=== PATIENT | male | born 1970 | race Caucasian/White ===

== ENCOUNTER 2020-11-26 09:31 | Outpatient (CLI) | payer BC, SELFPAY ==
--- NOTE | ~2020-11-26 | US_ITS ---
EXAMINATION: US soft tissue abdomen DATE: 11/26/2020 10:10 INDICATION: Intra-abdominal and pelvic swelling, mass or lump. TECHNIQUE: Multiple grayscale and Doppler ultrasound images of the abdominal right lower quadrant reg ion of concern were obtained both supine as well as while standing with Valsalva. COMPARISON: None FINDINGS: There is a small amount of gas within the small peristalsing loops of bowel in the region of concern. Normal appearance to the subcutaneous fat and musculature of the anterior abdominal wall. No evident ventral hernia. No abnormal masses or fluid collections identified. IMPRESSION: 1. No ventral hernia or other abnormal masses or fluid collections identified at the right lower quad rant region of concern. Reviewed, dictated and finalized at location B. EE GROWER IMPRESSION: 1. No ventral hernia or other abnormal masses or fluid collections identified a t the right lower quadrant region of concern.
== END 2020-11-26 09:32 | disposition home or self-care (01) ==
PROVIDERS: PCP Physician Assistant; Visit Provider Physician Assistant
DX: R19.00 Intra-abdominal and pelvic swelling, mass and lump, unspecified site (principal)
CPT/HCPCS: 76705

== ENCOUNTER → 2021-02-05 00:59 | Outpatient (CLI) | payer BC, SELFPAY ==
[2021-02-05 19:49] LABS: SARS-CoV-2 RNA PCR Negative
== END ==
PROVIDERS: PCP Physician Assistant; Visit Provider Internal Medicine Gastroenterology
DX: Z01.812 Encounter for preprocedural laboratory examination (principal); Z20.822 Contact with and (suspected) exposure to COVID-19
CPT/HCPCS: C9803; U0003; U0005

== ENCOUNTER 2021-02-08 01:22 | Day surgery (SDC) | payer BC, SELFPAY ==
[2021-02-02 09:16] VITALS: BMI 43.2
[2021-02-08 10:34] VITALS: BP 147/76; PULSE 70; RESP 18; TEMP 36.9; O2SAT 99
[2021-02-08] MEDS: LACTATED RINGERS 1,000 ML 150 ML IV CONT (10:48)
--- NOTE | 2021-02-08 10:59 | WPDANESEPPF ---
Anes - Initial Pre Proc Eval Procedure: Operation Date: 02/08/21 11:30 Proposed Procedures p Colonoscopy - Bladimir Soliz MD Date/Time: 02/08/21 10:59 Surgeon: Bladimir Soliz MD Pre Op Diagnosis: blood in stool, rectal bleed Patient Data Age: 50 Gender: M Height: 5 ft 8 in Weight: 129 kg Last Vital Signs Temp 98.4 F 02/08/21 10:34 Pulse 70 02/08/21 10:34 Resp 18 02/08/21 10:34 BP 147/76 H 02/08/21 10:34 Pulse Ox 99 02/08/21 10:34 Allergies Allergy/AdvReac Type Severity Reaction Status Date / Time No Known Allergies Allergy Verified 02/08/21 10:33 Home Medications Medication Instructions Recorded Confirmed Type cholecalciferol (vitamin D3) 250 250 mcg PO DAILY 11/20/20 02/02/21 History mcg (10,000 unit) capsule fexofenadine 180 mg tablet 180 mg PO DAILY 11/20/20 02/02/21 History multivit,calc,mins-folic 240 1 tablet PO DAILY 11/20/20 02/02/21 History mcg-vit K1 30 mcg-lycopene 300 mcg tablet naproxen 500 mg tablet 500 mg PO DAILY tablet 01/28/21 02/02/21 History Patient hx anesthesia problems: none Family hx anesthesia problems: none PMFSH Past Medical History Medical History Bleeding Carpal tunnel syndrome History of pneumonia SOB (shortness of breath) Surgical History Surgical History H/O knee surgery Family History Family History Mother Diabetes mellitus Social History Social History Smoking packs per day: 2 Smoking cigarettes per day: 40.0 Years smoked: 30 Smoking pack-years: 60.00 Smoking status: Former smoker Tobacco type: cigarettes Alcohol intake: current Drinks per week: 2 Substance use: never Substance use type: does not use Living arrangements: with family Spiritual care concerns: No Anes - Eval Final PreProcedure Day of Procedure 02/08/21 10:59 Patient weight: morbidly obese Heart: regular rate and rhythm Lungs: clear to auscultation Airway: Mallampati scale class III Neurological: alert and oriented Last oral intake: >/= 8 hours ASA classification: III Emergent: no Anesthetic plan: proceed Anesthesia type and monitoring: general GIVS and standard monitoring Informed Consent: The patient's anesthetic plan and its attendant risks and benefits were discussed with the patient/family/POA. Questions were solicited and answers provided to the satisfaction of the patient/family/POA.
--- NOTE | 2021-02-08 11:03 | PM.HPGS ---
History of Present Illness History of Present Illness Consent: Risks, benefits, and alternatives have been discussed and questions answered. Patient agrees to proceed with procedure. Chief complaint: blood in stool, rectal bleed Narrative: Isael Devine is a 50 year old male referred for evaluation of rectal bleeding Review of Systems Review of Systems: All systems reviewed & are unremarkable except as noted in HPI and below PMFSH Past Medical History Medical History Bleeding Carpal tunnel syndrome History of pneumonia SOB (shortness of breath) Surgical History Surgical History H/O knee surgery Family History Family History Mother Diabetes mellitus Social History Social History Smoking packs per day: 2 Smoking cigarettes per day: 40.0 Years smoked: 30 Smoking pack-years: 60.00 Smoking status: Former smoker Tobacco type: cigarettes Alcohol intake: current Drinks per week: 2 Substance use: never Substance use type: does not use Living arrangements: with family Spiritual care concerns: No Meds Home Medications and Allergies Home Medications Medication Instructions Recorded Confirmed Type cholecalciferol (vitamin D3) 250 250 mcg PO DAILY 11/20/20 02/02/21 History mcg (10,000 unit) capsule fexofenadine 180 mg tablet 180 mg PO DAILY 11/20/20 02/02/21 History multivit,calc,mins-folic 240 1 tablet PO DAILY 11/20/20 02/02/21 History mcg-vit K1 30 mcg-lycopene 300 mcg tablet naproxen 500 mg tablet 500 mg PO DAILY tablet 01/28/21 02/02/21 History Allergies Allergy/AdvReac Type Severity Reaction Status Date / Time No Known Allergies Allergy Verified 02/08/21 10:33 Vital Signs Vital Signs - 24 hr 02/08/21 10:34 Temperature 36.9 C Pulse Rate 70 Respiratory Rate 18 Blood Pressure 147/76 H Pulse Oximetry 99 Exam Const: General: alert Orientation/consciousness: patient oriented x3 Resp: Auscultation: clear to auscultation bilaterally Cardio: Rhythm: regular rhythm GI: GI Palp: Yes Soft to palpation and No Tenderness to palpation present (GI) Neuro: General: patient oriented x3 Assessment and Plan Assessment and plan (1) Blood in stool: Code(s): K92.1 - Melena Status: Acute Assessment and Plan: Colonoscopy with possible biopsy or polypectomy or cautery or injection of substances.
[2021-02-08 11:54] VITALS: BP 111/72; PULSE 79; RESP 20; O2SAT 96
[2021-02-08 12:04] VITALS: BP 121/71; PULSE 77; RESP 12; O2SAT 96
[2021-02-08 12:14] VITALS: BP 130/78; PULSE 72; RESP 22; O2SAT 97
== END 2021-02-08 12:20 | disposition home or self-care (01) ==
PROVIDERS: PCP Physician Assistant; Visit Provider Internal Medicine Gastroenterology
PROC: 0DJD8ZZ Inspection of Lower Intestinal Tract, Via Natural or Artificial Opening Endoscopic (ICD-10-PCS; CPT 45378; principal; 2021-02-08 11:30)
DX: K92.1 Melena (principal); K64.8 Other hemorrhoids; G56.00 Carpal tunnel syndrome, unspecified upper limb; Z87.891 Personal history of nicotine dependence; E66.01 Morbid (severe) obesity due to excess calories; Z68.41 Body mass index [BMI] 40.0-44.9, adult
CPT/HCPCS: 45378; J2704; J7120

== ENCOUNTER → 2021-08-24 01:51 | Outpatient (CLI) | payer BC, SELFPAY ==
[2021-08-24 18:23] LABS: SARS-CoV-2 RNA PCR Negative
== END ==
PROVIDERS: PCP Internal Medicine; Visit Provider Physician Assistant
DX: R68.89 Other general symptoms and signs (principal); Z20.822 Contact with and (suspected) exposure to COVID-19
CPT/HCPCS: C9803; U0003; U0005

== ENCOUNTER → 2021-11-10 11:51 | Outpatient (CLI) | payer BC, SELFPAY ==
--- NOTE | ~2021-11-10 | XR_ITS ---
EXAMINATION: XR chest 2V EXAM DATE: 11/10/2021 12:04 INDICATION: R05.9 - Cough, unspecified . TECHNIQUE: Frontal and lateral projections of the chest obtained and reviewed. Comparison is made to prior examination from 04/15/2013. FINDINGS: The lungs are clear. There are no pleural effusions. The cardiomediastinal silhouette is within normal limits. There is no pneumothorax suspected. The bones and soft tissues are unremarkab le. IMPRESSION: No acute cardiopulmonary findings. Reviewed, dictated and finalized at location A. U[employer] T[employer]OR
== END ==
PROVIDERS: Visit Provider Physician Assistant
DX: R05.9 Cough, unspecified (principal)
CPT/HCPCS: 71046

== ENCOUNTER 2022-06-16 11:27 | Emergency (ER) | payer BC, SELFPAY ==
[2022-06-16 11:35] VITALS: BP 137/87; PULSE 68; RESP 18; TEMP 36.3; O2SAT 99
--- NOTE | 2022-06-16 11:35 | ED.SKABFB ---
HPI - Skin/Abscess/Foreign Bdy General Chief complaint: Skin/Abscess/Foreign Body Stated complaint: Insect Bite Rt Lower Leg Time Seen by Provider: 06/16/22 11:35 Source: patient, RN notes reviewed and old records reviewed Mode of arrival: ambulatory Limitations: no limitations History of Present Illness HPI narrative: 51-year-old male presents to the [facility] with complaints of a rash to the medial aspect right mid calf for 2-1/2 weeks. Tried calling his primary care provider was told to use his triamcinolone. Symptoms or not improving. Very itchy. complaint: rash Related Data Home Medications Medication Instructions Recorded Confirmed meloxicam 15 mg tablet 15 mg PO DAILY 06/16/22 06/16/22 Allergies Allergy/AdvReac Type Severity Reaction Status Date / Time No Known Allergies Allergy Verified 06/16/22 11:28 Review of Systems Review of Systems: All systems reviewed & are unremarkable except as noted in HPI and below Constitutional: Constitutional: Reports no additional constitutional complaints, Denies chills and Denies fever(s) Eyes: Eyes: Reports no additional eye complaints ENT: Reports system reviewed and no additional complaints, except as documented Cardiovascular: Cardiovascular: Reports no additional cardiovascular complaints Respiratory: Respiratory: Reports no additional respiratory complaints Gastrointestinal: Gastrointestinal: Reports no additional gastrointestinal complaints Musculoskeletal: Musculoskeletal: Reports no additional musculoskeletal complaints Integumentary/Breasts: Skin/Breast: Reports as per HPI and Reports rash (right mid medial lower leg) Neurologic: Reports system reviewed and no additional complaints, except as documented Psychiatric: Psychiatric: Reports no additional psychiatric complaints Allergic/Immunologic: Allergic/Immunologic: Reports no additional allergic/immunologic complaints [facility] Past Medical History Medical History Bleeding Carpal tunnel syndrome History of pneumonia SOB (shortness of breath) Surgical History Surgical History H/O knee surgery Family History Family History Mother Diabetes mellitus Social History Social History Smoking packs per day: 2 Smoking cigarettes per day: 40.0 Years smoked: 30 Smoking pack-years: 60.00 Smoking status: Former smoker Tobacco type: cigarettes Alcohol intake: current Drinks per week: 2 Substance use: never Substance use type: does not use Spiritual care concerns: No Comments At the time of my signature, I reviewed and agree with the nursing past medical, surgical, social, and family history. There is no relevant family history pertinent to the patient complaint. Exam Const: General: healthy appearing, no acute distress and alert Nutritional Appearance: well nourished and obese Orientation/consciousness: patient oriented x3 Limitations: no limitations HENMT: Head: normal to inspection Ears: external ears normal Eyes: General: appearance normal, both eyes and all related structures Pupils: Equal, round and reactive pupils present Neck: Neck: normal visual inspection, no lymphadenopathy and no meningeal signs Chest: Chest palpation & inspection: normal inspection of the chest Resp: Effort & Inspection: normal respiratory effort and no use of accessory muscles Auscultation: clear to auscultation bilaterally, no crackles, no rales, no rhonchi and no wheezes Cardio: Rate: regular rate Rhythm: regular rhythm GI: GI Palp: Yes Soft to palpation and No Tenderness to palpation present (GI) Back/Spine/Pelvis: Cervical Spine: normal cervical lordosis Thoracic/Lumbar Spine: thoracic and lumbar spine normal to inspection Skin: General skin exam: normal colo
== END 2022-06-16 11:58 | disposition home or self-care (01) ==
PROVIDERS: Emergency Provider Nurse Practitioner; PCP Internal Medicine
DX: R21 Rash and other nonspecific skin eruption (principal); Z87.891 Personal history of nicotine dependence
CPT/HCPCS: 99213; G0463

== ENCOUNTER 2022-08-20 13:43 | Emergency (ER) | payer BC, SELFPAY ==
--- NOTE | ~2022-08-20 | XR_ITS ---
EXAMINATION: XR chest 2V DATE: 08/20/2022 14:38 INDICATION: Smoker presenting with cough TECHNIQUE: PA and lateral views of the chest were obtained. COMPARISON: Chest radiograph dated 11/10/2021 FINDINGS: Unchanged mild lingular linear discoid atelectasis/scarring at the anterolateral left lower lung zone . Lungs remain otherwise clear with no other airspace opacities, pulmonary edema, pleural effusion or pneumothorax. The cardiomediastinal silhouette is normal. Small bone island at the right humeral hea d. IMPRESSION: 1. Unchanged mild lingular discoid atelectasis/scarring. No acute cardiopulmonary disease. Reviewed, dictated and finalized at location A. IMPRESSION: 1. Unchanged mild lingular discoid atelectasis/scarring. No acute cardiopulmona ry disease.
[2022-08-20 14:03] VITALS: BP 149/86; PULSE 92; RESP 20; TEMP 36.3; O2SAT 99
--- NOTE | 2022-08-20 15:02 | ED.GENADULT ---
HPI - General Adult General Chief complaint: Upper Respiratory Infection Stated complaint: runny nose,cough,ears tingling History of Present Illness HPI narrative: patient is a 52-year-old male who presents to the [facility] via POV for evaluation of a cough that has been present for approximately 4 days. Additionally, he reports roof of mouth swelling, headache, sinus congestion, and fatigue. Mucinex D, Walphed, and at home neb tx provide some relief. Nothing worsens symptoms. He is an every day tobacco smoker. Hx of chronic bronchitits and pneumonia that goes bad fast. DENIES A HISTORY OF HYPERTENSION AND DIABETES MELLITUS Related Data Home Medications Medication Instructions Recorded Confirmed clotrimazole-betamethasone 1 2 applic topical BID 08/20/22 08/20/22 %-0.05 % topical cream Allergies Allergy/AdvReac Type Severity Reaction Status Date / Time No Known Allergies Allergy Verified 08/20/22 14:15 Review of Systems Review of Systems: Pertinent negatives: fever, sweats, chills, change in appetite, fatigue, skin color changes, nasal congestion, dizziness, lymphadenopathy, ear pain/drainage, chest pain, heart murmurs, heart palpitations, shortness of breath, wheezing, cyanosis, hemoptysis, hoarseness, orthopnea, pleuritic pain, nausea, vomiting, diarrhea, and myalgias. [facility] Past Medical History Medical History Bleeding Carpal tunnel syndrome History of pneumonia SOB (shortness of breath) Surgical History Surgical History H/O knee surgery Family History Family History Mother Diabetes mellitus Social History Social History Smoking packs per day: 2 Smoking cigarettes per day: 40.0 Years smoked: 30 Smoking pack-years: 60.00 Smoking status: Former smoker Tobacco type: cigarettes Alcohol intake: current Drinks per week: 2 Substance use: never Substance use type: does not use Spiritual care concerns: No Comments I have reviewed and agree with the patient's past medical, surgical, social, and family hx as documented by the RN. There is no relevant family history pertinent to the presenting complaint. Exam Narrative: GENERAL: Well-appearing, well-nourished, and in no acute distress. HEAD: Normocephalic, atraumatic. No sinus tenderness or facial swelling appreciated. EYES: PERRLA and EOMI. No evidence of erythema, swelling, or drainage. ENT: Bilateral external ears and ear canals normal. Bilateral TMs are normal.No TM perforation. Nares clear, no rhinorrhea or epistaxis. Bilateral turbinates without erythema/ swelling. Mucous membranes moist and pink. Uvula is midline without erythema and swelling. No evidence of petechial rash, cobblestoning, lesions, ulcers, erythema, swelling, exudates, peritonsillar abscess, tenting, or drooling. Breath odor and voice normal. NECK: Supple. No Lymphadenopathy or nuchal rigidity appreciated. CHEST: Bilateral lung plaza are clear to auscultation. No respiratory distress. MODERATE WET COUGH APPRECIATED ON EXAMINATION. HEART: Regular rate and rhythm. No murmur, gallop, or rub heard. EXTREMITIES: Normal range of motion. No edema. SKIN: Warm, dry, no rash. NEURO: No focal deficits. Alert and oriented x3. Course Course Emergency Course: THE PATIENT/GUARDIAN DISPLAYS ADEQUATE DECISION MAKING CAPABILITY AND DESPITE A DETAILED DISCUSSION OF ALTERNATIVES, BENEFITS, RISKS, AND CONSEQUENCES REFUSES ALL LAB TESTING. Level of Care: Express Care Visit Vital Signs Vital signs: Vital Signs Temperature 97.3 F L 08/20/22 14:03 Pulse Rate 92 08/20/22 14:03 Respiratory Rate 20 08/20/22 14:03 Blood Pressure 149/86 H 08/20/22 14:03 Pulse Oximetry 99 08/20/22 14:03 Oxygen Delivery Sari
== END 2022-08-20 15:50 | disposition home or self-care (01) ==
PROVIDERS: Emergency Provider Nurse Practitioner Family; PCP Internal Medicine
DX: R05.9 Cough, unspecified (principal); Z20.822 Contact with and (suspected) exposure to COVID-19; Z87.891 Personal history of nicotine dependence
CPT/HCPCS: 71046; 87426; 87804; 99213; C9803; G0463

== ENCOUNTER 2022-12-20 10:37 | Outpatient (CLI) | payer BC, SELFPAY ==
--- NOTE | ~2022-12-20 | XR_ITS ---
Clinical Indication: Cough PA and lateral views of the chest: Comparison: 08/20/2022 Findings: The lungs are clear, without evidence of focal consolidation or pleural effusion. Cardiome diastinal silhouette is within normal limits. Bones and soft tissues are unremarkable. Impression: Normal chest. Reviewed, dictated and finalized at location . CE NURSE Impression: Normal chest.
== END 2022-12-20 10:38 | disposition home or self-care (01) ==
PROVIDERS: PCP Physician Assistant; Visit Provider Physician Assistant
DX: R05.9 Cough, unspecified (principal)
CPT/HCPCS: 71046

== ENCOUNTER 2023-01-31 10:41 | Outpatient (CLI) | payer BC, SELFPAY ==
[2023-01-31 11:45] LABS: SARS-CoV-2 RNA PCR Negative
== END 2023-01-31 10:42 | disposition home or self-care (01) ==
PROVIDERS: PCP Physician Assistant; Visit Provider Physician Assistant
DX: R68.89 Other general symptoms and signs (principal); Z20.822 Contact with and (suspected) exposure to COVID-19
CPT/HCPCS: U0003; U0005

== ENCOUNTER 2025-01-15 11:47 | Outpatient (CLI) | payer BC, SELFPAY ==
--- NOTE | ~2025-01-15 | CT_ITS ---
CT sinus wo con Ordering provider: Drake Beavers APRN History: . J32.9 - Chronic sinusitis, unspecified . Comparison: None. Technique: Thin slice Scans CT of the paranasal sinuses was performed with coronal and sagittal refor matted images. No IV contrast. . Automated exposure control and iterative reconstruction technique w ere employed. The dose-length product was 266.74 mGy-cm. Findings: NASAL SEPTUM: Mild left nasal septal deviation. OSTEOMEATAL UNITS: The left is patent the right is obliterated. NASAL TURBINATES AND NASOPHARYNX: Normal. PARANASAL SINUSES: Right maxillary sinus disease with thickened wall of the sinus suggestive of chron ic sinusitis. Right ethmoid sinus disease. VISUALIZED MASTOIDS: Normal as visualized. BONES: Normal. SUPERFICIAL SOFT TISSUES/VISUALIZED BRAIN PARENCHYMA: Normal. IMPRESSION: Right maxillary and ethmoid sinus disease. Left nasal septal deviation. Reviewed, dictated and finalized at location A.
== END 2025-01-15 11:48 | disposition home or self-care (01) ==
LOC: MICIMG 11:48
PROVIDERS: PCP Nurse Practitioner; Visit Provider Nurse Practitioner
DX: J32.0 Chronic maxillary sinusitis (principal); J32.2 Chronic ethmoidal sinusitis; J34.2 Deviated nasal septum
CPT/HCPCS: 70486

== ENCOUNTER 2025-04-24 07:50 | Outpatient (CLI) | payer BC, SELFPAY ==
--- NOTE | 2025-04-24 07:57 | ECG_ITS ---
Test Date: 2025-04-24 08:18:05 Measurements Intervals [place] Rate: 71 P: 69 LA: 140 QRS: 57 QRSD: 113 T: 52 QT: 379 QTc: 412 Interpretive Statements SINUS RHYTHM INTRAVENTRICULAR CONDUCTION DELAY DELAYED PRECORDIAL R/S TRANSITION BASELINE ARTIFACT- I, III, AVR, AVL, AVF, V3-V4 BORDERLINE ECG No previous ECG available for comparison Electronically Signed On 04-24-2025 08:29:17 CDT by Jose Vergara D.O.
== END 2025-04-24 07:51 | disposition home or self-care (01) ==
LOC: ANHSURGERY 07:53
PROVIDERS: PCP Nurse Practitioner; Visit Provider Otolaryngology Otolaryngology/Facial Plastic Surgery
DX: E78.5 Hyperlipidemia, unspecified (principal); F17.210 Nicotine dependence, cigarettes, uncomplicated; Z01.818 Encounter for other preprocedural examination
CPT/HCPCS: 93005

== ENCOUNTER 2025-04-25 00:09 | Day surgery (SDC) | payer BC, SELFPAY ==
--- NOTE | 2025-04-22 15:24 | PC.NURSE ---
Report to the Outpatient Waiting Room, entrance under the green pavilion located off [facility], at time _0600_ on date _[id number]_. Planned Procedure Time: _0730_.? Time changes happen often and if your time is changed the preop area will call you the afternoon before. - You and your visitor will be asked to self-screen and do not enter if you have any COVID symptoms. Please call surgeon if you need to reschedule. - A mask is optional within the hospital at this time. Patients may have clear liquids (water, carbonated beverages, clear teas, apple juice) until 3 hours prior to surgery with a maximum of 20 ounces. - No food from midnight until time of surgery and no smoking, or chewing tobacco (or any form of nicotine). No chewing gum, candy or mints. Take only the following medications with a SIP of water on the morning of surgery: __Albuterol and flonase if needed. Doxycycline____ DO NOT STOP ANY OF YOUR OTHER PRESCRIPTION MEDICATIONS PRIOR TO SURGERY EXCEPT THE FOLLOWING Hold all vitamins and supplements for 3 days per anesthesiologist. Medications to discontinue per physician ____Meloxicam____ Date to take last dose_Stop now.___ Please no make-up, nail ethiopian, hairspray, perfume, deodorant, or body powder the day of surgery.? No jewelry (including any body piercings) or valuables the day of surgery, leave them at home.? Please take a shower or bath the night before, or the morning of, surgery with an antibacterial soap.? Wear comfortable, loose fitting clothing.? - Jewelry must be removed prior to entering the operating room.? Rings and piercings that are not removed may be cut off. - The hospital will not accept responsibility for valuables.? - Please leave all valuables, including medications, at home the day of surgery. If you are going home after surgery, a licensed trencher driver must drive you home.? - NO public transportation without another adult if you receive anesthesia. - We recommend that an adult stay with you for 24 hours following discharge. - We also recommend that you do not drive, make important decision, drink alcoholic beverages, or take any drugs that were not prescribed by your health care provider for at least 24 hours after your discharge time. Follow any additional instructions given to you from your surgeon. Telephone instructions given to __James__and asked if any additional questions and then verbalized understanding. Patient advised to call surgeon office or pre surgery nurse liaison [phone] if any additional questions.
[2025-04-22 15:26] VITALS: BMI 35.8
--- NOTE | 2025-04-24 16:45 | P.HP_ITS ---
H&P: HPI History of Present Illness Date/Time: 04/24/25 16:45 Chief Complaint: chronic sinusitis Review of Systems Review of Systems: All systems reviewed & are unremarkable except as noted in HPI and below Constitutional: Constitutional: Reports as per HPI ENT: Reports as per HPI Respiratory: Respiratory: Reports as per HPI Gastrointestinal: Gastrointestinal: Reports as per HPI [facility] Past Medical History Medical History Bleeding SOB (shortness of breath) Carpal tunnel syndrome History of pneumonia Surgical History Surgical History H/O knee surgery Family History Family History Mother Diabetes mellitus Social History Social History Social History: Caffeine-energy drinks Smoking packs per day: 1.5 Smoking cigarettes per day: 30.0 Years smoked: 20 Smoking pack-years: 30.00 Smoking status: Current every day smoker Tobacco type: cigarettes Alcohol intake: current Drinks per week: 8 Substance use: never Substance use type: does not use Lack of Transportation: No Lack of Food: Never True Current Housing: I Have Housing Concerned About Future Housing: No Difficulty Paying Gas/Electric Bills: No Difficulty Paying for Meds: No Currently Unemployed: No Education: Bachelor's Degree Difficulty w/ Childcare or Family Care: No Living arrangements: with family Spiritual care concerns: No Meds Home Medications and Allergies Home Medications ?Medication ?Instructions ?Recorded ?Confirmed ?Type fexofenadine-pseudoephedrine ER 1 tablet PO DAILY 12/02/22 04/22/25 History 180 mg-240 mg tablet,ext.release 24 hr (Cindy-D 24 Hour) fluticasone propionate 50 2 spray intranasal DAILY #18 mL 05/15/23 04/22/25 Rx mcg/actuation nasal spray,suspension (Flonase Allergy Relief) albuterol sulfate 90 mcg/actuation 2 puff inhalation Q4-6H PRN 03/21/24 04/22/25 Rx aerosol inhaler Shortness Of Breath Or Wheezing #25.5 grams rosuvastatin 5 mg tablet 5 mg PO DAILY #90 tabs 11/11/24 04/22/25 Rx albuterol sulfate 2.5 mg/3 mL 2.5 mg (3 mL) inhalation Q4-6H PRN 12/26/24 04/22/25 Rx (0.083 %) solution for nebulization shortness of breath or wheezing #90 mL meloxicam 15 mg tablet See Rx Instructions .Route 02/07/25 04/22/25 Rx .COMPLEX #90 tabs doxycycline hyclate 100 mg capsule 100 mg PO DAILY 04/22/25 04/22/25 History Allergies Allergy/AdvReac Type Severity Reaction Status Date / Time No Known Allergies Allergy Verified 04/25/25 05:48 Exam Const: General: cooperative, healthy appearing, comfortable, no acute distress, well developed, alert, awake and Physically active Orientation/consciousness: oriented to person, oriented to place, oriented to time and patient oriented x3 HENMT: Head: normocephalic and atraumatic Ears: external ears normal and EAC's normal Face/Nose/Sinus: Normal external nose present and Normal nares present Mouth: Yes Normal oral and palatal mucosa present, Yes lip normal and Yes tongue normal Eyes: General: appearance normal, both eyes and all related structures Neck: Neck: normal visual inspection, full ROM and trachea midline Resp: Effort & Inspection: normal respiratory effort and able to speak in complete sentences Cardio: Rate: regular rate Neuro: General: oriented to person, oriented to place, oriented to time and patient oriented x3 Assessment and Plan Assessment and plan (1) Chronic right maxillary sinusitis: Code(s): J32.0 - Chronic maxillary sinusitis Status: Acute (2) Chronic seasonal allergic rhinitis: Code(s): J30.2 - Other seasonal allergic rhinitis Status: Acute (3) Chronic ethmoidal sinusitis: Code(s): J32.2 - Chronic ethmoidal sinusitis Status: Acute (4) Chronic sinusitis: Qualifiers: Sinusitis location: pansinusitis Qualified Code(s): J32.4 - Chronic pansinusitis Code(s): J32.9 - Chronic sinusitis, unspecified Status: Acute Plan 54-year-old male with deviated nasal septum hypertrophy of nasal turbinates and chronic right-sided pansinusitis left deviated nasal septum and hypertrophy of nasal turbinates with mucopurulent secretion from the right middle meatus neck as well as the posterior meatus CT sinuses: IMPRESSION: Right maxillary and ethmoid sinus disease. Left nasal septal deviation. -Risk of septoplasty procedures were discussed with the patient which include but not limited to; Bleeding, infection, septal perforation, saddle nose deformity, intranasal scarring -Risks for sinus surgery: injury to the skull base, injury to the eye, need for further surgery. Risk of recurrent disease is also discussed.
--- NOTE | 2025-04-24 16:46 | P.OP_ITS ---
Procedure Note - Detailed Date of Procedure 04/25/25 Pre-op Diagnosis chronic sinusitis, chronic johns and maxill sinus, Post-op Diagnosis Same Procedure Performed ? Endoscopic septoplasty ? Nasal endoscopy with maxillary antrostomy right. ? Nasal endoscopy with ethmoidectomy, total (anterior and posterior) right. ? Nasal endoscopy with frontal sinusotomy with balloon dilation . ? Bilateral inferior turbinate reduction (intramural (submucosal) ablation of the inferior turbinate.) Surgeon Lydia Rebolledo MD Anesthesia General Description of Procedure DESCRIPTION OF PROCEDURE: The patient was seen in the preoperative area, informed consent was checked and confirmed. The patient was taken to the operating room, sedated and placed under general anesthesia with an endotracheal tube . Eyes were taped and were prepped and draped in the usual sterile fashion. The nose was examined, and the right anterior septum was injected with 1% lidocaine with 1:100,000 epinephrine. Volodymyr incision was made and a mucoperichondrial flap was elevated to expose the quadrangular cartilage and bony septum. Incision was then made anteriorly on the quadrangular cartilage to elevate the contralateral mucoperichondrial flap. The deviated quadrangular cartilage was excised with a Sriram knife. At least 1 cm of dorsal and caudal strut of quadrangular was left in place. We resected the deviated bony septum with a [place]-Shepard and a pituitary forceps. After adequate resection of the posterior-inferior bony septum, the mucoperichondrial Flap was laid back in anatomic position.4-0 Vicryl was used to suture the septal incision ,Welsh splint were placed in both nostrils and secured in place with 2-0 nylon We proceeded to the endoscopic sinus procedure starting on the right side. The agger nasi area was injected with 1% lidocaine with 1:100,000 epinephrine. The body of the middle turbinate was injected with 1% lidocaine with 1:100,000 epinephrine. The middle turbinate was gently medialized and the uncinectomy was performed with a pediatric Blanco backbiter and the uncinectomy was completed with a shaver from the inferior-posterior attachment to the superior anterior attachment. The ethmoidectomy was performed by shaving the anterior ethmoid bulla and care was taken to protect the skull base in the lamina papyracea. Maxillary antrum was re-examined with a 30-degree scope. A ball probe was passed into the antrum and was further widened with a backbiter in the anterior- inferior aspect.right posterior ethmoidectomy was done through the inferio- medial quadrant of basal lamella ,posterior ethmoid cells were removed from anterior to posterior direction and from inferior to superior taking care to preserve skull base and lamina papyracea.then ,lateralization of the middle turbinate and shaving,opening of the posterior corridor and shaving the posterior part of the middle turbinate to widen the superior meatus Agger Nasi cells on right were opened with the shaver and 30-degree scope. Frontal sinus ostium was identified with image guidance . Then the balloon was passed into the frontal sinus and the ostia was adequately dilated. Shaver was used to debride excess tissue to clear the frontal recess. Pledgets were placed in the ethmoid cavity. and we proceeded to the left side. We proceeded with submucosal inferior turbinate reduction, starting on the right side, a stab incision was made anterior mucosa of inferior turbinate. Submucosal pocket was created along the length of the inferior turbinate and the microdebrider blade 2mm thick was introduced anteriorly and into the whole submucosal pocket. Microdebrider was then used to remove the hypertrophied bony parts of anterior turbinate head and soft tissue with the outer layer intact. The residual inferior turbinate was then out fractured using Boies elevator. We proceeded to the left side. A stab incision was made on the anterior mucosa of inferior turbinate. Submucosal pocket was created along the length of the i nferior turbinate and the microdebrider blade 2 mm thick was introduced anteriorly and into the whole submucosal pocket. Microdebrider was then used to remove the hypertrophied bony parts of anterior turbinate head and soft tissue with the outer layer intact. The residual inferior turbinate was then out fractured using Boies elevator. Pledgets were removed from ethmoid cavities, PosiSep X BAM Hemostat Dressing sponges were placed in ethmoid cavities bilaterally and infiltrated with a mixture of kenalog and cefazolin. The nose was then suctioned clean and at this point the care of the patient was then transferred to the anesthesiologist where the patient emerged from general anesthesia without complication. Estimated Blood Loss 10 (ml) Pathology Other (culture was done ) Complications No immediate complications Condition Stable Disposition PACU [facility] Billing Surgery - Charge Forward: Surgery Billing
--- NOTE | 2025-04-24 16:46 | WPDHPUPDATE1 ---
History and Physical Update Update Date/Time: 04/24/25 16:46 History and Physical has been reviewed, including an updated exam of the patient. There are NO changes in the patient's condition. Risks, benefits, and alternatives have been discussed and questions answered. Patient agrees to proceed with procedure.
[2025-04-25] VITALS (13 sets, daily range): BP systolic 131–181; BP diastolic 73–96; PULSE 66–80; RESP 12–21; TEMP 36.5–36.6; O2SAT 95–99; BMI 35.4
[2025-04-25] MEDS: LACTATED RINGERS 1,000 ML 30 ML IV CONT ×2 (06:40→11:17)
[2025-04-25] MEDS: ACETAMINOPHEN 500 MG TABLET 1000 MG PO (06:42)
[2025-04-25] MEDS: OXYMETAZOLINE HCL 0.05% NAS 15 ML BTL (*BKC) 2 SPRAY NASAL ×3 (06:42→07:14)
--- NOTE | 2025-04-25 07:00 | WPDANESEPPF ---
Anes - Initial Pre Proc Eval Procedure: Operation Date: 04/25/25 07:30 Proposed Procedures p Septoplasty - Lydia Rebolledo MD s Navigation Guided Bilateral Inferior Turbinate Reduction, Right Maxillary Antrostomy with Tissue Removal, Right Complete Ethmoidectomy, Right Frontal Osteotomy with Balloon Dilation - Lydia Rebolledo MD Date/Time: 04/25/25 07:00 Surgeon: Lydia Rebolledo MD Pre Op Diagnosis: chronic sinusitis, chronic johns and maxill sinus, Patient Data Age: 54 Gender: M Height: 1.73 m Weight: 106.8 kg Allergies Allergy/AdvReac Type Severity Reaction Status Date / Time No Known Allergies Allergy Verified 04/25/25 05:48 Home Medications ?Medication ?Instructions ?Recorded ?Confirmed ?Type fexofenadine-pseudoephedrine ER 1 tablet PO DAILY 12/02/22 04/22/25 History 180 mg-240 mg tablet,ext.release 24 hr (Cindy-D 24 Hour) fluticasone propionate 50 2 spray intranasal DAILY #18 mL 05/15/23 04/22/25 Rx mcg/actuation nasal spray,suspension (Flonase Allergy Relief) albuterol sulfate 90 mcg/actuation 2 puff inhalation Q4-6H PRN 03/21/24 04/22/25 Rx aerosol inhaler Shortness Of Breath Or Wheezing #25.5 grams rosuvastatin 5 mg tablet 5 mg PO DAILY #90 tabs 11/11/24 04/22/25 Rx albuterol sulfate 2.5 mg/3 mL 2.5 mg (3 mL) inhalation Q4-6H PRN 12/26/24 04/22/25 Rx (0.083 %) solution for nebulization shortness of breath or wheezing #90 mL meloxicam 15 mg tablet See Rx Instructions .Route 02/07/25 04/22/25 Rx .COMPLEX #90 tabs doxycycline hyclate 100 mg capsule 100 mg PO DAILY 04/22/25 04/22/25 History Patient hx anesthesia problems: none Family hx anesthesia problems: none Results Review: All pre-operative results and documents have been reviewed as part of the pre-operative evaluation. [facility], [facility] Past Medical History Medical History Bleeding SOB (shortness of breath) Carpal tunnel syndrome History of pneumonia Surgical History Surgical History H/O knee surgery Family History Family History Mother Diabetes mellitus Social History Social History Social History: Caffeine-energy drinks Smoking packs per day: 1.5 Smoking cigarettes per day: 30.0 Years smoked: 20 Smoking pack-years: 30.00 Smoking status: Current every day smoker Tobacco type: cigarettes Alcohol intake: current Drinks per week: 8 Substance use: never Substance use type: does not use Lack of Transportation: No Lack of Food: Never True Current Housing: I Have Housing Concerned About Future Housing: No Difficulty Paying Gas/Electric Bills: No Difficulty Paying for Meds: No Currently Unemployed: No Education: Bachelor's Degree Difficulty w/ Childcare or Family Care: No Living arrangements: with family Spiritual care concerns: No Anes - Eval Final PreProcedure Day of Procedure 04/25/25 07:00 Patient weight: obese Heart: regular rate and rhythm Lungs: decreased breath sounds Airway: Mallampati scale class II Neurological: alert and oriented Last oral intake: >/= 8 hours ASA classification: III Emergent: no Anesthetic plan: proceed Anesthesia type and monitoring: general ETT and standard monitoring Results Review: All pre-operative results and documents have been reviewed as part of the pre-operative evaluation. Informed Consent: The patient's anesthetic plan and its attendant risks and benefits were discussed with the patient/family/POA. Questions were solicited and answers provided to the satisfaction of the patient/family/POA.
[2025-04-25] MEDS: ceFAZolin 2 GM/D5W 50 ML 2 GM/50 ML BAG IVPB (07:45)
[2025-04-25] MEDS: COCAINE HCL (*CRX) 4% TOP SOLN 4 ML VIAL 1 APPLIC TOPICAL (08:05)
[2025-04-25] MEDS: LIDO 1%/EPINEPHRINE 1:100,000 50 ML VIAL INFILTRATE (08:06)
[2025-04-25] MEDS: ceFAZolin SODIUM 1 GM VIAL (08:06)
[2025-04-25] MEDS: TRIAMCINOLONE ACET INJ 40 MG/ML VIAL XX (08:09)
--- NOTE | 2025-04-25 09:39 | SUR.OPER ---
Aerobic, anaerobic and gram stain right sinus sent with Ailyn Vargas, PCT
[2025-04-25] MEDS: CELLULOSE OXIDIZED 2 x 14 INCH 1 PKT XX (10:49)
[2025-04-25] MEDS: MUPIROCIN 2% OINT 22 GM TUBE 1 APPLIC TOPICAL (11:03)
[2025-04-25] MEDS: methylPREDNISolone SOD SUCC 40 MG VIAL 20 MG IM (12:43)
[2025-04-25] MEDS: oxyCODONE HCL (*CRX) 5 MG TAB IR PO (13:19)
== END 2025-04-25 14:30 | disposition home or self-care (01) ==
PROVIDERS: PCP Nurse Practitioner; Visit Provider Otolaryngology Otolaryngology/Facial Plastic Surgery
PROC: (CPT 30520; principal; 2025-04-25 07:30)
PROC: (CPT 31256; 2025-04-25 07:30)
DX: J32.0 Chronic maxillary sinusitis (principal); J30.2 Other seasonal allergic rhinitis; J32.2 Chronic ethmoidal sinusitis; J32.4 Chronic pansinusitis; J34.3 Hypertrophy of nasal turbinates; J34.2 Deviated nasal septum; G89.29 Other chronic pain; F17.210 Nicotine dependence, cigarettes, uncomplicated; E66.9 Obesity, unspecified; Z68.35 Body mass index [BMI] 35.0-35.9, adult
CPT/HCPCS: 31256; 31253; 61782; 30520; 30140; 87070; 87075; 87186; 87205; A9270; J0690; J1100; J2003; J2004; J2250; J2405; J2704; J2919; J3010; J3301; J7050; J7120

== ENCOUNTER 2025-09-29 14:50 | Outpatient (CLI) | payer BC, SELFPAY ==
--- NOTE | ~2025-09-29 | XR_ITS ---
EXAMINATION: XR elbow RT 2V, 09/29/2025 14:55 NEIGHBORHOOD WORKER HISTORY: M25.511 - Pain in right shoulder COMPARISON: No comparisons available. Findings: No acute fracture or malalignment. No significant degenerative changes. Soft tissues unremarkable. Impression: No acute fracture or malalignment. Reviewed, dictated and finalized at location P. HBORHOOD WORKER Impression: No acute fracture or malalignment.
--- NOTE | ~2025-09-29 | XR_ITS ---
EXAMINATION: XR shoulder RT min 2V, 09/29/2025 14:55 TECHNICIAN SUPPORT ENGINEER HISTORY: M25.511 - Pain in right shoulder COMPARISON: No comparisons available. Findings: No acute fracture or malalignment. No significant degenerative changes. Soft tissues unremarkable. Impression: No acute fracture or malalignment. Reviewed, dictated and finalized at location P. NICIAN SUPPORT ENGINEER Impression: No acute fracture or malalignment.
== END 2025-09-29 14:51 | disposition home or self-care (01) ==
LOC: MICIMG 14:52
PROVIDERS: PCP Nurse Practitioner; Visit Provider Nurse Practitioner
DX: M25.511 Pain in right shoulder (principal); M25.521 Pain in right elbow
CPT/HCPCS: 73030; 73070